=== PATIENT | male | born 1975 | race Caucasian/White ===

== ENCOUNTER 2022-12-12 14:16 | Outpatient (CLI) | payer MEDICARE, SELFPAY ==
--- NOTE | ~2022-12-12 | XR_ITS ---
EXAMINATION: XR tibia fibula RT 2V INDICATION: Other specified soft tissue disorders, cellulitis TECHNIQUE: Two views of the right knee are obtained. COMPARISON: None available FINDINGS: There are changes of below-knee amputation. There is a moderate amount of soft tissue swell ing and edema of the stump. There is mild osteoarthritis of the knee. Calcified atherosclerosis is no paco. IMPRESSION: 1. Changes of below-knee amputation with a moderate amount of soft tissue swelling and edema of the s tump. Reviewed, dictated and finalized at location L. [employer] IMPRESSION: 1. Changes of below-knee amputation with a moderate amount of soft tissue swell ing and edema of the stump.
== END 2022-12-12 14:17 | disposition home or self-care (01) ==
PROVIDERS: PCP Family Medicine; Visit Provider Physician Assistant
DX: M79.89 Other specified soft tissue disorders (principal); L03.115 Cellulitis of right lower limb; Z87.39 Personal history of other diseases of the musculoskeletal system and connective tissue; Z89.511 Acquired absence of right leg below knee
CPT/HCPCS: 73590